=== PATIENT | female | born 1985 ===

== ENCOUNTER 2019-01-23 15:06 | Outpatient (CLI) | payer OTHER ==
[~2019-01-23] VITALS: Ht 172.7 cm; Wt 88.9 kg
[~2019-01-23 15:06] MED LIST: NORVASC2.5 MG
== END 2019-01-23 15:20 | disposition home or self-care (01) ==
LOC: OFIC 805 15:06
DX: H61.23 Impacted cerumen, bilateral (principal); H91.8X2 Other specified hearing loss, left ear; G47.33 Obstructive sleep apnea (adult) (pediatric)